=== PATIENT | male | born 1995 | race African-American/Black ===

== ENCOUNTER 2016-09-01 08:05 | Emergency (ER) | payer OTHER ==
[~2016-09-01] VITALS: Ht 177.8 cm; Wt 77.5 kg
[2016-09-01 08:09] VITALS: BP 136/78; PULSE 63; RESP 16; TEMP 98.3; O2SAT 99
--- NOTE | 2016-09-01 08:14 | PD ---
HPI Chief Complaint: Skin Problem Time Seen by Provider: 08:13 Travel History International Travel<30 days: No Contact w/Intl Traveler<30days: No Traveled to known affect area: No History of Present Illness HPI 21-year-old male came to the emergency room with history of upper lip swelling had a lesion that started yesterday. Patient says that he tried to clean a sore on his lip with some peroxide and this morning woke up with the upper lip swollen even more and it hurts. His never had this in the past. He is otherwise a healthy person. Vital signs are stable. FOR[facility]LY [facility] Past Medical History Narrative Medical List of his past medical, surgical, social and family history is reviewed from the nursing note. Respiratory: Yes (asthma) Social History Tobacco Use: Yes Allergies-Medications (Allergen,Severity, Reaction): Coded Allergies: No Known Allergies (Unverified , 09/01/16) Comments No known drug allergies. Reported Meds & Prescriptions Reported Meds & Active Scripts Active Acyclovir Topical (Acyclovir) 5% Oint 1 Applic TOPICAL Q3HR Reported Symbicort Inh (Budesonide/Formoterol Fumarate) 80-4.5 Mcg/Act Aero 1 Puff INH Q12HR Narrative Medication List of his home medications reviewed from the nursing note. Review of Systems Except as stated in HPI: all other systems reviewed are Neg Physical Exam Narrative GENERAL: Awake, alert, no obvious distress SKIN: Focused skin assessment warm/dry. Upper lip on the left-hand side has a swelling with small multiple vesicular rash on the skin surface. HEAD: Atraumatic. Normocephalic. EYES: Pupils equal and round. No scleral icterus. No injection or drainage. ENT: No nasal bleeding or discharge. Mucous membranes pink and moist. NECK: Trachea midline. No JVD. CARDIOVASCULAR: Regular rate and rhythm. No murmur appreciated. RESPIRATORY: No accessory muscle use. Clear to auscultation. Breath sounds equal bilaterally. GASTROINTESTINAL: Abdomen soft, non-tender, nondistended. Hepatic and splenic margins not palpable. MUSCULOSKELETAL: No obvious deformities. No clubbing. No cyanosis. No edema. NEUROLOGICAL: Awake and alert. No obvious cranial nerve deficits. Motor grossly within normal limits. Normal speech. PSYCHIATRIC: Appropriate mood and affect; insight and judgment normal. Data Data Last Documented VS Vital Signs Date Time Temp Pulse Resp B/P Pulse Ox O2 Delivery O2 Flow Rate FiO2 09/01/16 08:09 98.3 63 16 136/78 99 MDM Medical Decision Making Medical Screen Exam Complete: Yes Emergency Medical Condition: Yes Medical Record Reviewed: Yes Differential Diagnosis Herpes labialis Narrative Course 8:20 AM patient will be discharged home with a prescription for topical acyclovir to apply. This has been explained to him. Procedures EKG Prior to Arrival: No Diagnosis Primary Impression: Herpes labialis Referrals: Primary Care Physician 2 days Additional Instructions: Please return to the ER if the symptoms worsen or any other concerns. Otherwise follow up with your PMD in couple of days. Apply the ointment prescribed to you on the lesion as directed. Do not apply any other chemical. Med/Other Pt SpecificInfo: Prescription(s) given Scripts Acyclovir Topical 5% Oint1 Applic TOPICAL Q3HR #5 GM Ref 0 Prov:Iram Faye MD 09/01/16 Disposition: 01 DISCHARGE HOME Condition: Stable Iram Faye MD September 01, 2016 08:14
[2016-09-01] MEDS ORDERED: ACYC5OIN4 TOPICAL (08:22)
[2016-09-01] MEDS ORDERED: SYMB80AE INH (08:24)
== END 2016-09-01 09:12 | disposition home or self-care (01) ==
LOC: PHED 08:05
DX: B00.1 Herpesviral vesicular dermatitis (principal); J45.909 Unspecified asthma, uncomplicated; Z79.899 Other long term (current) drug therapy
CPT/HCPCS: 99283